=== PATIENT | male | born 1960 | race Caucasian/White ===

== ENCOUNTER 2024-03-23 22:35 | Emergency (ER) | payer OTHER ==
[~2024-03-23] VITALS: Ht 172.7 cm; Wt 82.0 kg
[2024-03-23 22:38] VITALS: O2SAT 96
[2024-03-23] MEDS ORDERED: LIDOCAINE HCL/PF 1% 10 MG/ML 5ML VIAL INFIL ONE (23:15)
[2024-03-23] MEDS ORDERED: LIDOCAINE HCL/PF 1% 10 MG/ML 5ML VIAL INFIL NR (23:45)
[2024-03-24 09:48] VITALS: BP 118/78; PULSE 80; RESP 18; TEMP 36.72516; O2SAT 98
== END 2024-03-24 09:51 ==
LOC: ER 22:35
DX: S01.01XA Laceration without foreign body of scalp, initial encounter (principal); S09.90XA Unspecified injury of head, initial encounter; I10 Essential (primary) hypertension; W18.39XA Other fall on same level, initial encounter; Y93.89 Activity, other specified; Y92.89 Other specified places as the place of occurrence of the external cause; Y99.8 Other external cause status
CPT/HCPCS: 12001; 99284; 70450; Z7610